=== PATIENT | male | born 1980 | race African-American/Black ===

== ENCOUNTER 2024-03-15 13:19 | Emergency (ER) | payer OTHER ==
[2024-03-15 13:23] VITALS: TEMP 98.7; BMI 25.8
[2024-03-15] MEDS ORDERED: amLODIPine BESYLATE 5 MG TABLET (FP) ONE (15:19)
[2024-03-15] MEDS: amLODIPine BESYLATE 5 MG TABLET (FP) PO ONE (15:33)
[2024-03-15 15:38] LABS: BASO % 1.1 % (0-2.0); EOS % 2.5 % (0-4.5); HEMOGLOBIN 15.6 GM/dL (11.7-16.9); LYMPH % 43.7 % (8-40); MCH 27.9 pg (25.7-33.7); MCHC 33.8 g/dl (32.0-35.9); MEAN CELL VOLUME 82.6 fl (80-96); MEAN PLT VOLUME 6.8 fl (7.5-11.1); MONO % 10.5 % (3.8-10.2); NEUT % 42.2 % (42.8-82.8); PLATELET COUNT 278 10^3/uL (134-434); RBC 5.57 M/mm3 (4.00-5.60); RDW 13.6 % (11.9-15.9); WHITE BLOOD COUNT 4.1 K/mm3 (4.0-10.0)
[2024-03-15 16:03] LABS: POTASSIUM 3.8 mmol/L (3.5-5.1)
[2024-03-15 16:05] LABS: CALCIUM 9.1 mg/dL (8.5-10.1)
[2024-03-15 16:06] LABS: ALBUMIN 3.7 g/dl (3.4-5.0); BLOOD UREA NITROGEN 13.8 mg/dL (7-18)
[2024-03-15 16:09] LABS: CREATININE 1.1 mg/dL (0.55-1.3)
[2024-03-15 16:10] LABS: BILIRUBIN,TOTAL 0.4 mg/dL (0.2-1); TOT PROT 7.1 g/dl (6.4-8.2)
[2024-03-15 18:06] VITALS: BP 179/108; PULSE 82; RESP 18
== END 2024-03-15 18:06 | disposition home or self-care (01) ==
LOC: JER 13:19
DX: I10 Essential (primary) hypertension (principal); R51.9 Headache, unspecified
CPT/HCPCS: 36415; 80053; 85025; 93005; 93010; 99284-25